=== PATIENT | female | born 1955 | race Caucasian/White ===

== ENCOUNTER 2018-07-02 19:17 | Emergency (ER) | payer BC ==
--- OUTSIDE RECORDS SUMMARY | 2018-07-02 19:31 | XMS REPORT | Continuity of Care Document ---
:1955 External Reference #:[id number] Author Name Mone Varner Care Team Providers Name Role Phone Elida Cat MD Primary Care Physician Unavailable Payers Date Identification Numbers Payment Provider Subscriber Policy Number: [id number] [facility] Emily Gallagher PayID: [id number] [address] [place] [address] Advance Directives Description No Information Available Problems Date Description Provider Status Onset: 06/22/2010 Pure hypercholesterolemia Natali Lopez M.D., FACP Active Onset: 07/26/2016 Difficulty breathing Brandee Toure MD Active Onset: 08/22/2016 Obstructive sleep apnea syndrome Brandee Toure MD Active Onset: 11/30/2016 Insomnia Brooklynn Jameson DNP, Active RN, MARY LOU-BC Onset: 11/30/2016 Hypersomnia Brooklynn Jameson DNP, Active RN, MARY LOU-BC Onset: 06/26/2018 Achilles bursitis Justen Morrow MD Active Onset: 03/30/2018 Peroneal tendinitis, right leg Justen Morrow MD Active Onset: 03/30/2018 Enthesopathy of ankle AND/OR tarsus Justen Morrow MD Active Onset: 03/30/2018 Tendon contracture Justen Morrow MD Active Family History Date Family Member(s) Observation Comments : (age 45 Father due to Accident Years) : (age 97 Mother due to Alzheimer's at age 78 Years) Disease First Brother Alive And Well First Sister Alive And Well Social History Type Date Description Comments Sex Unknown Marital Status Single Lives With Alone 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 Every Day Vitamin C 07/25 Active Tablets 500mg 1 by mouth 1-2 per week Ibuprofen 10/08 Active Capsules 200mg 2 Salomón E capsules Kathy, as needed Laura Loratadine 07/25 Hx Capsules 10mg 1 by mouth - every day 01/31 Losartan Potassium 05/10 Hx Tablets 50mg 30tab 1 by I10 s mouth Varn, - every day N.P. 11/29 Losartan Potassium 03/29 Hx Tablets 25mg 90tab 1 by I10 s mouth Varn, - every day N.P. 05/10 Ramipril 07/20 Hx Capsules 2.5mg 30cap 1 by I10 s mouth Varn, - every day N.P. 03/29 Hydrochlorothiazid 06/15 Hx Capsules 12.5mg 90cap 1 by I10 s mouth Varn, - every day N.P. 07/20 Omeprazole 10/[address] 40mg 30cap take one K21.9 s capsule Varn, - by mouth N.P. 11/29 every Omeprazole 10/[address] 20mg 30cap 1 by 530.81 s mouth Varn, - every day N.P. 10/29 Nasonex 10/14 Hx Suspension 50mcg/Act 1unit 2 sprays 461.0 Natali /2010 s to each Jessica, - nostril M.DRena, 10/08 twice FACP daily Augmentin 10/14 Hx Tablets 500-125mg 20tab 1 by 461.0 Natali /2011 s mouth Jessica, - twice a M.D., 12/28 day Zocor 08/17 Hx Tablets 20mg 90tab 1 tablet s at Jessica, - bedtime M.D., 10/08 HCTZ 08/17 Hx 25mg. 1 po qd Jessica, - M.D., 08/20 Antacid Hx Chewtabs 350-150mg 3 Unknown /0000 chewtabs - bid 06/[address] 20mg 90cap 1 by Unknown /0000 s mouth - every day 12/03 Immunizations CPT Code Status Date Vaccine Lot # [id number] Given 05/07/2009 Influenza Virus Vaccine, Pandemic Formulation [id number] Given 05/07/2009 Influenza Virus 3Yrs & Over 07088 Given 05/07/2009 Administration Swine Flu Shot [id number] Given 05/06/2008 Tdap - Tetanus/Diptheria/Acellular Pertussis Vital Signs Date Vital Result Comment 06/26/2018 1:33pm Height 64 inches 5'4" Weight 165.00 lb BP Systolic 128 mmHg BP Diastolic 80 mmHg Respiratory Rate 15 /min Body Temperature 97.9 F Pain Level 1 BMI (Body Mass Index) 28.3 kg/m2 03/30/2018 9:20am Height 64 inches 5'4" Weight 163.00 lb Heart Rate 84 /min BP Systolic 132 mmHg BP Diastolic 84 mmHg Body Temperature 98.4 F Pain Level 0 BMI (Body Mass Index) 28.0 kg/m2 02/27/2018 9:56am Height 64 inches 5'4" Weight 163.00 lb Heart Rate 84 /min BP Systolic 145 mmHg BP Diastolic 82 mmHg O2 % BldC Oximetry 98 % BMI (Body Mass Index) 28.0 kg/m2 08/24/2017 8:56am Height 64 inches 5'4" Weight 166.25 lb Heart Rate 86 /min BP Systolic 120 mmHg BP Diastolic 68 mmHg Body Temperature 97.7 F O2 % BldC Oximetry 96 % BMI (Body Mass Index) 28.5 kg/m2 06/08/2017 2:01pm Height 64 inches 5'4" Weight 168.12 lb Heart Rate 84 /min BP Systolic Sitting 140 mmHg BP Diastolic Sitting 86 mmHg Respiratory Rate 16 /min O2 % BldC Oximetry 97 % BMI (Body Mass Index) 28.9 kg/m2 01/31/2017 9:25am Height 64 inches 5'4" Weight 167.12 lb with shoes Heart Rate 84 /min BP Systolic Sitting 146 mmHg Rue reg cuff BP Diastolic Sitting 84 mmHg Rue reg cuff Respiratory Rate 18 /min O2 % BldC Oximetry 98 % On Ra BMI (Body Mass Index) 28.7 kg/m2 11/30/2016 8:55am Height 64 inches 5'4" Weight 170.00 lb Heart Rate 68 /min BP Systolic Sitting 138 mmHg BP Diastolic Sitting 90 mmHg Respiratory Rate 14 /min O2 % BldC Oximetry 98 % BMI (Body Mass Index) 29.2 kg/m2 11/23/2016 9:58am Weight 169.25 lb Heart Rate 83 /min BP Systolic 120 mmHg BP Diastolic 68 mmHg Body Temperature 96.4 F O2 % BldC Oximetry 98 % 10/12/2016 11:17am Height 64 inches 5'4" Weight 170.00 lb Heart Rate 64 /min BP Systolic Sitting 126 mmHg BP Diastolic Sitting 80 mmHg Respiratory Rate 14 /min O2 % BldC Oximetry 97 % BMI (Body Mass Index) 29.2 kg/m2 08/22/2016 1:26pm Height 64 inches 5'4" Weight 170.00 lb Heart Rate 62 /min BP Systolic Sitting 142 mmHg BP Diastolic Sitting 96 mmHg Respiratory Rate 14 /min O2 % BldC Oximetry 97 % BMI (Body Mass Index) 29.2 kg/m2 07/26/2016 10:19am Height 64 inches 5'4" Weight 170.00 lb Heart Rate 84 /min BP Systolic Sitting 126 mmHg BP Diastolic Sitting 76 mmHg Respiratory Rate 14 /min O2 % BldC Oximetry 98 % BMI (Body Mass Index) 29.2 kg/m2 Neck Circumference in inches 14.5 06/07/2016 8:43am Height 63.5 inches 5'3.50" Weight 173.00 lb Heart Rate 84 /min BP Systolic 124 mmHg BP Diastolic 62 mmHg Body Temperature 96.9 F O2 % BldC Oximetry 98 % BMI (Body Mass Index) 30.2 kg/m2 05/10/2016 11:04am Height 63.5 inches 5'3.50" Weight 172.00 lb Heart Rate 91 /min BP Systolic 140 mmHg BP Diastolic 93 mmHg Body Temperature 99.2 F O2 % BldC Oximetry 99 % BMI (Body Mass Index) 30.0 kg/m2 03/29/2016 9:57am Height 63.5 inches 5'3.50" Weight 172.00 lb Heart Rate 86 /min BP Systolic 132 mmHg BP Diastolic 76 mmHg Body Temperature 98.4 F O2 % BldC Oximetry 99 % BMI (Body Mass Index) 30.0 kg/m2 08/18/2015 10:04am Weight 173.75 lb Heart Rate 92 /min BP Systolic Sitting 133 mmHg BP Diastolic Sitting 83 mmHg Body Temperature 99.2 F O2 % BldC Oximetry 96 % 07/21/2015 9:51am Height 64 inches 5'4" Weight 174.00 lb Heart Rate 84 /min BP Systolic Sitting 126 mmHg BP Diastolic Sitting 82 mmHg Respiratory Rate 15 /min Body Temperature 98.3 F O2 % BldC Oximetry 98 % BMI (Body Mass Index) 29.9 kg/m2 06/16/2015 10:30am Height 64 inches 5'4" Weight 174.25 lb Heart Rate 87 /min BP Systolic Sitting 150 mmHg BP Diastolic Sitting 88 mmHg BP Systolic Recheck 160 mmHg BP Diastolic Recheck 100 mmHg O2 % BldC Oximetry 98 % BMI (Body Mass Index) 29.9 kg/m2 05/01/2015 10:23am Height 64 inches 5'4" Weight 173.25 lb Heart Rate 84 /min BP Systolic Sitting 128 mmHg BP Diastolic Sitting 82 mmHg Body Temperature 97.4 F Pain Level 8 when spasm happens. O2 % BldC Oximetry 98 % BMI (Body Mass Index) 29.7 kg/m2 12/03/2014 10:34am Height 64 inches 5'4" Weight 168.00 lb Heart Rate 76 /min BP Systolic Sitting 128 mmHg BP Diastolic Sitting 84 mmHg Body Temperature 98.0 F O2 % BldC Oximetry 98 % BMI (Body Mass Index) 28.8 kg/m2 10/15/2013 2:17pm Height 64 inches 5'4" Weight 168.00 lb Heart Rate 72 /min BP Systolic Sitting 122 mmHg BP Diastolic Sitting 78 mmHg Body Temperature 98.6 F BMI (Body Mass Index) 28.8 kg/m2 10/08/2013 10:52am Height 64 inches 5'4" Weight 168.00 lb Heart Rate 84 /min BP Systolic Sitting 128 mmHg BP Diastolic Sitting 78 mmHg Body Temperature 98.4 F BMI (Body Mass Index) 28.8 kg/m2 12/28/2010 11:15am Height 64 inches 5'4" Weight 170.00 lb Heart Rate 74 /min BP Systolic Sitting 132 mmHg BP Diastolic Sitting 80 mmHg BMI (Body Mass Index) 29.2 kg/m2 10/14/2010 2:07pm Height 64 inches 5'4" Weight 170.00 lb Heart Rate 70 /min BP Systolic Sitting 124 mmHg BP Diastolic Sitting 76 mmHg Body Temperature 98.9 F BMI (Body Mass Index) 29.2 kg/m2 06/22/2010 9:51am Weight 170.00 lb Heart Rate 80 /min BP Systolic 110 mmHg BP Diastolic 78 mmHg 04/20/2010 11:26am Weight 172.00 lb Heart Rate 80 /min BP Systolic 126 mmHg BP Diastolic 80 mmHg Results Test Date Facility Test Result H/L Range Note Lipid Profile 08/22/2017 [facility] Triglycerides 137 mg/dL 1 (Trig/Chol/HDL) [address] [place] [address] [phone] Cholesterol 179 mg/dL 2 HDL Cholesterol 32.1 mg/dL 3 LDL Cholesterol 120 mg/dL 4 Comp Metabolic Panel 08/22/2017 [facility] Sodium 140 mmol/L N 139-[address] [place] [address] [phone] Potassium 4.8 mmol/L N 3.5-5.0 Chloride 107 mmol/L N 101-111 Co2 Carbon Dioxide 27 mmol/L N 22-32 Anion Gap 6 mmol/L N 2-11 Glucose 104 mg/dL High 70-100 Blood Urea Nitrogen 14 mg/dL N 6-24 Creatinine 0.78 mg/dL N 0.51-0.95 BUN/Creatinine Ratio 17.9 N 8-20 Calcium 9.3 mg/dL N 8.6-10.3 Total Protein 6.5 g/dL N 6.4-8.9 Albumin 4.0 g/dL N 3.2-5.2 Globulin 2.5 g/dL N 2-4 Albumin/Globulin Ratio 1.6 N 1-3 Total Bilirubin 0.40 mg/dL N 0.2-1.0 Alkaline Phosphatase 75 U/L N 34-104 Alt 14 U/L N 7-52 Ast 13 U/L N 13-39 Egfr Non- 75.1 >60 Egfr 96.6 >60 5 Comp Metabolic Panel 06/09/2015 [facility] Sodium 139 mmol/L N 133-[address] [place] [address] [phone] Potassium 4.3 mmol/L N 3.5-5.0 Chloride 104 mmol/L N 101-111 Co2 Carbon Dioxide 31 mmol/L N 22-32 Anion Gap 4 mmol/L N 2-11 Glucose 115 mg/dL High 70-100 Blood Urea Nitrogen 15 mg/dL N 6-24 Creatinine 0.87 mg/dL N 0.51-0.95 BUN/Creatinine Ratio 17.2 N 8-20 Calcium 9.6 mg/dL N 8.6-10.3 Total Protein 6.7 g/dL N 6.4-8.9 Albumin 4.2 g/dL N 3.2-5.2 Globulin 2.5 g/dL N 2-4 Albumin/Globulin Ratio 1.7 N 1-3 Total Bilirubin 0.40 mg/dL N 0.2-1.0 Alkaline Phosphatase 79 U/L N 34-104 Alt 18 U/L N 7-52 Egfr Non- 66.6 N >60 Egfr 85.7 N >60 6 Ast 16 U/L N 13-39 Lipid Profile 06/09/2015 [facility] Triglycerides 218 mg/dL N 7 (Trig/Chol/HDL) [address] [place] [address] [phone] HDL Cholesterol 32.9 mg/dL N 8 Cholesterol 204 mg/dL N 9 LDL Cholesterol 128 mg/dL N 10 Laboratory test 01/13/2015 [facility] Surgical SEE RESULT [address] [place] [address] [phone] Laboratory test 12/03/2014 [facility] Cytology SEE RESULT [address] [place] [address] [phone] HPV Rna Ww/Reflex Genotype Negative N Negative 13 Laboratory test 10/16/2013 [facility] Erythrocyte Sed 30 mm/Hr N 0-[address] [place] [address] [phone] CBC W/Manual 10/16/2013 [facility] White Blood 6.1 N 4.8-10.[address] Count 10^3/[place] [address] [phone] Red Blood Count 4.37 10^6/uL N 4.0-5.4 Hemoglobin 13.7 g/dL N 12.0-16.0 Hematocrit 40 % N 35-47 Mean Corpuscular Volume 92 fL N 80-97 Mean Corpuscular Hemoglobin 31 pg N 27-31 Mean Corpuscular HGB Conc 34 g/dL N 31-36 Red Cell Distribution Width 13 % N 10.5-15 Platelet Count 293 10^3/uL N 150-450 Mean Platelet Volume 8 um3 N 7.4-10.4 Abs Neutrophils 4.4 10^3/uL N 1.5-7.7 Abs Lymphocytes 1.0 10^3/uL N 1.0-4.8 Abs Monocytes 0.5 10^3/uL N 0-0.8 Abs Eosinophils 0.1 10^3/uL N 0-0.6 Abs Basophils 0 10^3/uL N 0-0.2 Abs Nucleated RBC 0 10^3/uL N Neutrophil % 71 % N 38-83 Lymphocytes % 17 % Low 25-47 Monocytes % 8 % N 0-13 Eosinophils % 4 % N 0-6 RBC Morphology Normal N Normal 1 Desirable: <150 Borderline High: 150-199 High: 200-499 Very High: >500 2 Desirable: <200 Borderline High: 200-239 High: >239 3 Low: <40 Desirable: 40-60 High: >60 4 Desirable: <100 Near Optimal: 100-129 Borderline High: 130-159 High: 160-189 Very High: >189 5 Because ethnic data is not always readily available, this report includes an eGFR for both -Americans and non- Americans. The National Kidney Disease Education Program (NKDEP) does not endorse the use of the MDRD equation for patients that are not between the ages of 18 and 70, are , have extremes of body size, muscle mass, or nutritional status, or are non- or non-. According to the National Kidney Foundation, irrespective of diagnosis, the stage of the disease is based on the level of kidney function: Stage Description GFR(mL/min/1.73 m(2)) 1 Kidney damage with normal or decreased GFR 90 2 Kidney damage with mild decrease in GFR 60-89 3 Moderate decrease in GFR 30-59 4 Severe decrease in GFR 15-29 5 Kidney failure <15 (or dialysis) 6 Because ethnic data is not always readily available, this report includes an eGFR for both -Americans and non- Americans. The National Kidney Disease Education Program (NKDEP) does not endorse the use of the MDRD equation for patients that are not between the ages of 18 and 70, are , have extremes of body size, muscle mass, or nutritional status, or are non- or non-. According to the National Kidney Foundation, irrespective of diagnosis, the stage of the disease is based on the level of kidney function: Stage Description GFR(mL/min/1.73 m(2)) 1 Kidney damage with normal or decreased GFR 90 2 Kidney damage with mild decrease in GFR 60-89 3 Moderate decrease in GFR 30-59 4 Severe decrease in GFR 15-29 5 Kidney failure <15 (or dialysis) 7 Desirable <150 Borderline high 150-199 High 200-499 Very High >500 8 Low <40 Desirable: 40-60 High: >60 9 Desirable <200 Borderline high 200-239 High >239 10 Desirable: <100 mg/dL Near Optimal: 100-129 mg/dL Borderline High: 130-159 mg/dL High: 160-189 mg/dL Very High: >189 mg/dL 11 SEE RESULT BELOW Name: EMILY GALLAGHER : [address]: Cody Cisneros MD Acct: [id number] Unit: [id number] AGE: 59 Location: [facility] Re01/13/15 SEX: F Status: REG REF SPEC: [id number] JENNIFER: 01/13/15- SUBM DR: Cody Cisneros MD REQ: [id number] RECD: 01/13/15 STATUS: HEIDY HSIEH DR: Jenniffer Mtz SMOG TECHNICIAN _ ORDERED: LEVEL IV FINAL DIAGNOSIS Colon, 20 cm, biopsy: -- Hyperplastic polyp. CLINICAL HISTORY No additional information provided POST-OPERATIVE DIAGNOSIS Colonoscopy to terminal ileum - polyp at 20 cm. biopsied, tics; 5 years GROSS DESCRIPTION The specimen is received in formalin labeled, Biopsy Polyp at 20 cm, and consists of a 0.5 x 0.3 x 0.1 cm aggregate of carnes irregular soft tissue fragments, which is submitted entirely in one cassette. Signed (signature on file) Kristian Rhodes MD [id number] END OF REPORT * ML=Testing performed at Main Lab DEPARTMENT OF PATHOLOGY, [address] [place] [address] Kristian Rhodes M.D. Director [facility] # [id number] 12 SEE RESULT BELOW Name: EMILY GALLAGHER: [address]: Jenniffer Mtz NP Acct: [id number] Unit: [id number] AGE: 59 Location: [facility] Re12/03/14 SEX: F Status: REG REF SPEC: [id number] JENNIFER: 12/03/14-[address]: Jenniffer Mtz NP REQ: [id number] RECD: 12/03/14 STATUS: SOUT _ ORDERED: IMAGE ANALYSIS, HPV/Thin Prep, HPV 16/18 GENE FINAL DIAGNOSIS Negative for Intraepithelial lesion or Malignancy A. Ectocervical/Endocervical Specimen Adequacy: Satisfactory of evaluation Transformation zone component identified Patient Information: HPV: High risk HPV RNA testing regardless of pap results. HPV 16/18 Genotype for HPV pos Actual Specimen Date: 12/03/14 Date Time Test Result Flag (u) Normal Range 12/03/14 1210 HPV RNA RFLX GE Negative Negative The high-risk HPV types detected by the assay include: 16, 18, 31, 33, 35, 39, 45, 51, 52, 56, 58, 59, 66, and 68. Signed (signature on file) Nba Juan 12/04/14 1230 This Pap test was evaluated with the assistance of the ThinPrep Test Imaging System. Due to cytologic findings at the maintenance mechanic telephone microscope, comprehensive manual rescreening by a Propellant Charge Loader may be required. The Pap Smear is a screening test designed to aid in the detection of premalignant and malignant conditions of the uterine cervix. It is not a diagnostic procedure and should not be used as the sole means of detecting cervical cancer. Both false- positive and false- negative reports do occur. Depending on your risk status, a Pap smear should be obtained and evaluated every 1-3 years. END OF REPORT * ML=Testing performed at Main Lab DEPARTMENT OF PATHOLOGY, [address] [place] [address] Kristian Rhodes M.D. Director [facility] # [id number] 13 The high-risk HPV types detected by the assay include: 16, 18, 31, 33, 35, 39, 45, 51, 52, 56, 58, 59, 66, and 68. Procedures Date Code Description Status 08/28/2017 36164979 Mammogram Completed 08/05/2016 43599 Sleep Study Unattended,HRT Rate,Oxygen Sat,Resp Completed Effort/Airflow 03/31/2016 [id number] Mammogram Completed 01/13/2015 [id number] Colonoscopy Completed 12/16/2014 [id number] Mammogram Completed 06/19/2008 038186384 Diabetic Retinal Eye Exam Completed 06/17/2008 48589 Endometrial Sampling W Or W/O Endocervical BX W Or W/O Completed Cerv Dilat 05/27/2008 [id number] Colonoscopy Completed 05/20/2008 470200101 Bone Mineral Density Test Completed 05/20/2008 [id number] Mammogram Completed 05/06/2008 73006 EKG Tracing & Interpretation Completed Encounters Type Date Location Provider Dx Diagnosis Office Visit 03/30/2018 [facility] Justen Morrow, M76.71 Peroneal 9:00a Of [facility] tendinitis, right leg M67.01 Short Achilles tendon (acquired), right ankle M25.774 Osteophyte, right foot Office Visit 02/27/2018 10:00a [facility] Internal Jenniffer Mtz, I10 Essential ( primary) Medicine - N.P. hypertension [place] F32.9 Major depressive disorder, single episode, unspecified Office Visit 08/24/2017 9:00a [facility] Internal Jenniffer Mtz, Z00.00 Encntr for Medicine - N.P. general adult [place] medical exam w/o abnormal findings Z12.31 Encntr screen mammogram for malignant neoplasm of breast I10 Essential (primary) hypertension E78.00 Pure hypercholesterolemia, unspecified K21.9 Gastro-esophageal reflux disease without esophagitis G47.33 Obstructive sleep apnea (adult) (pediatric) Office Visit 06/08/2017 [facility] Brook[place]nn G47.33 Obstructive sleep 2:00p [facility] RADHA Jameson RN, apnea (adult) [facility] (pediatric) G47.14 Hypersomnia due to medical condition G47.00 Insomnia, unspecified Office Visit 01/31/2017 [facility] [place] G47.33 Obstructive sleep 9:15a [facility] RADHA Jameson RN, apnea (adult) [facility] (pediatric) G47.00 Insomnia, unspecified Office Visit 11/30/2016 [facility] [place] G47.33 Obstructive sleep 8:45a [facility] RAD[facility] Jameson RN, apnea (adult) [facility] (pediatric) G47.14 Hypersomnia due to medical condition G47.00 Insomnia, unspecified Office Visit 11/23/2016 [facility] Internal Jenniffer Mtz, I10 Essential 10:00a Medicine - N.P. (primary) [place] hypertension Office Visit 10/12/2016 [facility] [place] G47.33 Obstructive sleep 11:15a [facility] Jameson, RN, apnea (adult) [facility] DESIGN ENGINEERING MANAGER-BC (pediatric) G47.14 Hypersomnia due to medical condition G89.29 Other chronic pain G47.00 Insomnia, unspecified Office Visit 08/22/2016 1:45p [facility]ology And Brandee G47.33 Obstructive sleep [facility] MD [place] apnea (adult) [facility] (pediatric) Office Visit 07/26/2016 11:00a [facility] Brandee R06.83 Snoring [facility] [place] Professional Driver R40.0 Somnolence Office Visit 06/07/2016 8:40a [facility] Internal Jenniffer Mtz, I10 Essential ( primary) Medicine - N.P. hypertension [place] M54.2 Cervicalgia Office Visit 05/10/2016 11:20a [facility] Internal Jenniffer Mtz, I10 Essential ( primary) Medicine - N.P. hypertension [place] R53.83 Other fatigue Office Visit 03/29/2016 10:00a [facility] Internal Jenniffer Mtz, Z00.01 Encounter for Medicine - N.P. general adult [place] medical exam w abnormal findings Z12.31 Encntr screen mammogram for malignant neoplasm of breast I10 Essential (primary) hypertension E78.00 Pure hypercholesterolemia, unspecified K21.9 Gastro-esophageal reflux disease without esophagitis M79.622 Pain in left upper arm Office Visit 08/18/2015 [facility] Internal Jenniffer tMz, I10 Essential 10:00a Medicine - N.P. (primary) [place] hypertension Office Visit 07/21/2015 [facility] Internal Jenniffer Mtz I10 Essential 10:00a Medicine - N.P. (primary) [place] hypertension Office Visit 06/16/2015 [facility] Internal Jenniffer Mtz, I10 Essential 10:40a Medicine - N.P. (primary) [place] hypertension Office Visit 05/01/2015 Vania Mtz S76.311A Strain 10:20a Medicine - N.P. msl/fasc/tnd post [place] grp at [facility], right thigh, init Office Visit 12/03/2014 Vania Mtz V70.0 Examination 10:40a Medicine - N.P. General Medical [place] Routine AT [facility] Care Facility V72.31 Routine Technical Publications Writer Examination V76.10 Screening For Malignant Neoplasm Breast 272.4 Hyperlipidemia Other Unspec 401.1 Hypertension Benign 530.81 Esophageal Reflux Office Visit 10/15/2013 2:20p [facility] Internal Jenniffer Mtz, 530.81 Esophageal Reflux Medicine - N.P. [place] 780.79 Malaise And Fatigue Other Office Visit 10/08/2013 11:00a [facility] Internal Salomón [place] 789.06 Pain Abdominal Medicine - Laura Chavez Epigastric [place] 272.0 Hypercholesterolemia Pure 780.79 Malaise And Fatigue Other Office 12/28/2010 DO Not Use Natali 272.0 Hypercholesterolemia Visit 11:00a Spencer Lopez M.D., Pure FACP Office 10/14/2010 DO Not Use Natali 461.0 Sinusitis Acute Visit 2:00p Spencer Lopez M.D., Maxillary FACP Office 06/22/2010 DO Not Use Natali 272.4 Hyperlipidemia Other Visit 9:45a Spencer Lopez M.D., Unspec FACP Office 04/20/2010 DO Not Use Natali 272.0 Hypercholesterolemia Visit 11:15a Spencer Lopez M.D., Pure FACP Office 08/19/2009 DO Not Use Natali 272.4 Hyperlipidemia Other Visit 2:30p Spencer Lopez M.D., Unspec FACP 401.1 Hypertension Benign Office Visit 05/07/2009 DO Not Use Natali Jessica, 272.4 Hyperlipidemia Other 1:45p Spencer Sanchez, FACP Unspec 401.1 Hypertension Benign V04.81 Need For Prophylactic Vaccination & Inoculation/Influenza Office Visit 02/04/2009 DO Not Use Natali Jessica, 272.4 Hyperlipidemia Other 9:00a Spencer Sanchez, FACP Unspec 796.2 Blood Pressure Reading Elevated W/O Hypertension Office Visit 12/03/2008 DO Not Use Natali Jessica, 272.4 Hyperlipidemia Other 9:00a Spencer Sanchez, FACP Unspec 796.2 Blood Pressure Reading Elevated W/O Hypertension Office Visit 10/24/2008 DO Not Use Jenniffer 693.1 Dermatitis Due [facility] 2:00p [facility]. Food Office Visit 06/05/2008 DO Not Use Natali Jessica, 272.4 Hyperlipidemia 2:00p Spencer Sanchez, FACP Other Unspec 626.8 Menstruation & Other Abnormal Bleeding Disorders Other Office Visit 05/06/2008 10:30a DO Not Use Natali Jessica, V72.31 Routine Technical Publications Writer [facility] FACP Examination 401.1 Hypertension Benign V06.1 Xtacbvonzi-Itebswa-Ajrvmtln Combined (DTaP) Plan of Treatment Future Appointment(s):12/18/2018 1:00 pm - Jenniffer Mtz [place]. at [facility] Internal Medicine - Frnosvgoy89/15/2019 1:15 pm - Justen Morrow MD at [facility]08/21/2018 9:15 am - Brooklynn Jameson DNP, RN, DESIGN ENGINEERING MANAGER-BC at [facility]06/26/2018 - Justen Morrow, MDM67.01 Short Achilles tendon (acquired), right [id number] Osteophyte, right [id number] Achilles tendinitis, right legNew Xrays:Ankle Right 3+VWS, Ordered: Follow up:Follow Up: 13-15 days postop
[2018-07-02 19:56] VITALS: BP 156/84
[2018-07-02] MEDS ORDERED: Acetaminophen TAB* 325 MG PO ONE (20:08)
[2018-07-02 20:25] LABS: Influenza A Molecular POSITIVE (Negative)
--- NOTE | 2018-07-02 20:38 | ED ---
Respiratory - HPI Summary HPI Summary: 62 yr old with fever, chills, myalgias, coughing. Onset over the past 24 hours. She returned from [facility] on a plane Monday morning at 4 am. She had onset after getting back. No CP, no SOB, no leg pain. She has fatigue as well. - History of Current Complaint Chief Complaint: UCGeneralIllness Stated Complaint: COUGH Time Seen by Provider: 07/02/18 20:08 Pain Intensity: 0 - Allergy/Home Medications Allergies/Adverse Reactions: Allergies Allergy/AdvReac Type Severity Reaction Status Date / Time No Known Allergies Allergy Verified 07/02/18 19:50 PMH/Surg Hx/FS Hx/Imm Hx Endocrine/Hematology History: Denies: Hx Diabetes Cardiovascular History: Denies: Hx Hypertension, Hx Pacemaker/ICD History: Denies: Hx Renal Disease Sensory History: Denies: Hx Hearing Aid Psychiatric History: Denies: Hx Panic Disorder - Cancer History Hx Chemotherapy: No Hx Radiation Therapy: No - Surgical History Surgery Procedure, Year, and Place: ROTATOR CUFF LEFT SURGERY 2006. 3 LEFT KNEE SURGERIES AND 1 LEFT KNEE CLEANING Infectious Disease History: No Infectious Disease History: Denies: Traveled Outside the [place] in Last 30 Days - Family History Known Family History: Positive: None - Social History Occupation: Employed Full-time Alcohol Use: Rare Substance Use Type: Reports: None Smoking Status (MU): Never Smoked Tobacco Review of Systems Positive: Fever, Chills Positive: Nasal Discharge Positive: Cough Positive: Myalgia All Other Systems Reviewed And Are Negative: Yes Physical Exam Triage Information Reviewed: Yes Vital Signs On Initial Exam: Initial Vitals Temp Pulse Resp BP Pulse Ox 100.5 F 93 20 156/84 98 07/02/18 19:52 07/02/18 19:52 07/02/18 19:52 07/02/18 19:52 07/02/18 19:52 Vital Signs Reviewed: Yes Appearance: Positive: Well-Appearing, No Pain Distress Skin: Positive: Warm, Skin Color Reflects Adequate Perfusion Head/Face: Positive: Normal Head/Face Inspection Eyes: Positive: EOMI ENT: Positive: Pharynx normal, Nasal congestion, TMs normal Neck: Positive: Nontender Respiratory/Lung Sounds: Positive: Clear to Auscultation, Breath Sounds Present Cardiovascular: Positive: RRR. Negative: Murmur Abdomen Description: Negative: Distended Musculoskeletal: Positive: Strength/ROM Intact. Negative: Edema Left, Edema Right Neurological: Positive: Sensory/Motor Intact, Alert, Oriented to Person Place, Time, CN Intact II-III, Normal Gait, Speech Normal Psychiatric: Positive: Normal - [place] Coma Scale Best Eye Response: 4 - Spontaneous Best Motor Response: 6 - Obeys Commands Best Verbal Response: 5 - Oriented Coma Scale Total: 15 Diagnostics - Vital Signs Vital Signs Temp Pulse Resp BP Pulse Ox 07/02/18 19:52 100.5 F 93 20 156/84 98 - Laboratory Lab Results: Lab Results 07/02/18 Range/Units 20:20 Influenza A (Rapid) Positive A (Negative) Lab Statement: Any lab studies that have been ordered have been reviewed, and results considered in the medical decision making process. Disposition - Course Course Of Treatment: 62 yr old with influenza. Rx with Tamiflu. - Diagnoses Provider Diagnoses: Influenza A, Hypertension Discharge - Sign-Out/Discharge Documenting (check all that apply): Patient Departure All imaging exams completed and their final reports reviewed: No Studies - Discharge Plan Condition: Good Disposition: HOME Prescriptions: Oseltamivir CAP* [Tamiflu CAP*] 75 mg PO BID #10 cap Patient Education Materials: Influenza (ED) Referrals: Salomón Chavez MD [Primary Care Provider] - 2 Days - Billing Disposition and Condition Condition: GOOD Disposition: Home
== END 2018-07-02 20:44 | disposition home or self-care (01) ==
LOC: UCCORT 19:17
DX: J10.1 Influenza due to other identified influenza virus with other respiratory manifestations (principal); I10 Essential (primary) hypertension
CPT/HCPCS: 99212; A9270-GY; G0463

== ENCOUNTER 2018-12-11 21:23 | Emergency (ER) | payer BC ==
[2018-12-11 21:38] VITALS: BP 134/76
[2018-12-11] MEDS ORDERED: Amoxicillin/Clavulanate TAB* 875 MG PO ONE (21:49)
[2018-12-11] MEDS ORDERED: Tetan/Diph/Pertus SYR(Tdap)* 0.5 ML SYR(BOOSTRIX) use SYR IM ONE (21:49)
--- NOTE | 2018-12-11 21:57 | ED ---
Bite Injury/Animal - HPI Summary HPI Summary: 63 yr old with cat bite to the left hand over the 2nd MP area. Injury a week ago. Her cat is up to date on shots, and is acting normally. The cat was being put in a carrier when this happened. The patient states the area has been red, she thought it would go away but now her left forearm dorsum is a little tender , but not red. No fever or chills. She does not feel ill. - History of Current Complaint Chief Complaint: UCWounds Stated Complaint: LEFT HAND CAT BITE Time Seen by Provider: 12/11/18 21:45 Pain Intensity: 2 - Allergies/Home Medications Allergies/Adverse Reactions: Allergies Allergy/AdvReac Type Severity Reaction Status Date / Time No Known Allergies Allergy Verified 12/11/18 21:38 Home Medications: Home Medications amLODIPine TAB* [Norvasc 5 mg TAB*] 5 mg PO DAILY 12/11/18 [History Confirmed ] PMH/Surg Hx/FS Hx/Imm Hx Endocrine/Hematology History: Denies: Hx Diabetes, Hx Thyroid Disease Cardiovascular History: Reports: Hx Hypertension Denies: Hx Pacemaker/ICD Respiratory History: Denies: Hx Asthma, Hx Chronic Obstructive Pulmonary Disease (COPD) GI History: Denies: Hx Ulcer History: Denies: Hx Renal Disease Psychiatric History: Denies: Hx Panic Disorder - Cancer History Hx Chemotherapy: No Hx Radiation Therapy: No - Surgical History Surgery Procedure, Year, and Place: ROTATOR CUFF LEFT SURGERY 2006. 3 LEFT KNEE SURGERIES AND 1 LEFT KNEE CLEANING Infectious Disease History: Yes Infectious Disease History: Reports: Hx Shingles - 30 years ago Denies: Hx Hepatitis, Hx Human Immunodeficiency Virus (HIV), Traveled Outside the [place] in Last 30 Days - Family History Known Family History: Positive: None - Social History Occupation: Employed Full-time Alcohol Use: Rare Substance Use Type: Reports: None Smoking Status (MU): Never Smoked Tobacco Review of Systems Constitutional: Negative Positive: Other - cat bite left hand with cellulitis All Other Systems Reviewed And Are Negative: Yes Physical Exam Triage Information Reviewed: Yes Vital Signs On Initial Exam: Initial Vitals Temp Pulse Resp BP Pulse Ox 98.0 F 89 18 134/76 97 12/11/18 21:32 12/11/18 21:32 12/11/18 21:32 12/11/18 21:32 12/11/18 21:32 Vital Signs Reviewed: Yes Appearance: Positive: Well-Appearing, No Pain Distress Skin: Positive: Warm, Other - cellulitis with mild sts to the left hand dorsum. No redness to the left forearm. Head/Face: Positive: Normal Head/Face Inspection Eyes: Positive: EOMI ENT: Positive: Normal ENT inspection Neck: Positive: Nontender Respiratory/Lung Sounds: Positive: Clear to Auscultation, Breath Sounds Present Cardiovascular: Positive: RRR. Negative: Murmur Abdomen Description: Negative: Distended Musculoskeletal: Positive: Other - left hand 2nd MP area without joint effusion. She has some tenderness to the dorsum of the left hand; she has good ROM across the DIP, PIP and MP of the left hand digits. No swelling of the deep spaces of hand. Her left wrist is fROM without pain. Forearm and arm are not swollen on left. Neurological: Positive: Sensory/Motor Intact, Alert, Oriented to Person Place, Time, CN Intact II-III, Normal Gait, Speech Normal Diagnostics - Vital Signs Vital Signs Temp Pulse Resp BP Pulse Ox 12/11/18 21:32 98.0 F 89 18 134/76 97 - Laboratory Lab Statement: Any lab studies that have been ordered have been reviewed, and results considered in the medical decision making process. Bite Injury Course/Dx - Course Course Of Treatment: 63 yr old with cat bite and cellulitis. Rx with augmentin. referral to ortho hand - Diagnoses Provider Diagnosis: Cat bite of left hand with infection Discharge ED - Sign-Out/Discharge Documenting (check all that apply): Patient Departure All imaging exams completed and their final reports reviewed: No Studies - Discharge Plan Condition: Good Disposition: HOME Prescriptions: Amoxicillin/Clavulanate TAB* [Augmentin TAB 875*] 875 mg PO BID #20 tab Patient Education Materials: Animal Bite (ED) Referrals: Jenniffer Mtz NP [Primary Care Provider] - Rika Pichardo MD [Medical Doctor] - 1 Day Alvarez Henriquez MD [Medical Doctor] - 1 Day Dean Rocha MD [Medical Doctor] - 1 Day Additional Instructions: You have cellulitis to your hand after a cat bite a week ago. You should followup with Orthopedic, hand specialist for close monitoring of your progress. - Billing Disposition and Condition Condition: GOOD Disposition: Home
== END 2018-12-11 22:02 | disposition home or self-care (01) ==
LOC: UCCORT 21:23
DX: S61.452A Open bite of left hand, initial encounter (principal); L08.9 Local infection of the skin and subcutaneous tissue, unspecified; W55.01XA Bitten by cat, initial encounter; Y93.89 Activity, other specified; Y92.9 Unspecified place or not applicable; I10 Essential (primary) hypertension
CPT/HCPCS: 90471; 90715; 99212; A9270-GY; G0463